=== PATIENT | male | born 1990 | race Caucasian/White ===

== ENCOUNTER 2017-03-06 08:47 | Emergency (ER) | payer BC ==
[2017-03-06 09:01] VITALS: BP 120/67
--- NOTE | 2017-03-06 09:17 | UC ---
Respiratory Complaint HPI - HPI Summary HPI Summary: he has hx of allergies and is on alba but now he is having wheezing. he has also had itchy watery eyes and congestion. no hx of asthma. - History of Current Complaint Chief Complaint: UCRespiratory Stated Complaint: ALLERGIES,TROUBLE BREATHING Time Seen by Provider: 03/06/17 09:03 Onset/Duration: Gradual Onset Timing: Constant Severity Initially: Mild Severity Currently: Moderate Character: Cough: Nonproductive Aggravating Factors: Allergens Associated Signs And Symptoms: Positive: Wheezing, Nasal Congestion, Hoarseness - Allergies/Home Medications Allergies/Adverse Reactions: Allergies Allergy/AdvReac Type Severity Reaction Status Date / Time ENVIROMENTAL Allergy Intermediate WHEEZING , Uncoded 03/06/17 08:54 CONGESTION Home Medications: Home Medications Cetirizine HCl [Zyrtec Allergy 10 MG TAB] 10 mg PO DAILY 03/06/17 [History Confirmed 03/06/17] Fexofenadine (NF) [Alba 180 (NF)] 180 mg PO DAILY 03/06/17 [History Confirmed 03/06/17] PMH/Surg Hx/FS Hx/Imm Hx Previously Healthy: Yes - seasonal allergies. Endocrine History Of: Denies: Diabetes - Surgical History Surgical History: None - Family History Known Family History: Positive: Other - adopted. - Social History Occupation: Student Alcohol Use: Rare Substance Use Type: None Smoking Status (MU): Never Smoked Tobacco Review of Systems All Other Systems Reviewed And Are Negative: Yes Physical Exam Triage Information Reviewed: Yes Appearance: Well-Appearing, No Pain Distress, Well-Nourished Vital Signs: Initial Vital Signs Temp 97.4 F 03/06/17 08:55 Pulse 86 03/06/17 08:55 Resp 20 03/06/17 08:55 BP 120/67 03/06/17 08:55 Pulse Ox 98 03/06/17 08:55 Vital Signs Reviewed: Yes Eye Exam: Normal Eyes: Positive: Conjunctiva Clear. Negative: Conjunctiva Inflamed ENT Exam: Normal ENT: Positive: Normal ENT inspection, Pharynx normal, Nasal congestion. Negative: Pharyngeal erythema, Nasal drainage, Tonsillar swelling, Tonsillar exudate, Trismus, Muffled/hoarse voice Neck exam: Normal Neck: Positive: Supple, Nontender, No Lymphadenopathy Respiratory: Positive: No respiratory distress, No accessory muscle use, Wheezing - torsten scant upper faint wheezing with good air movement throughout.. Negative: Respiratory distress, Decreased breath sounds, Accessory muscle use, Crackles, Rhonchi, Stridor Cardiovascular Exam: Normal Cardiovascular: Positive: RRR, No Murmur, Pulses Normal, Brisk Capillary Refill Abdominal Exam: Normal Abdomen Description: Positive: Nontender, No Organomegaly, Soft Musculoskeletal Exam: Normal Musculoskeletal: Positive: Strength Intact, ROM Intact, No Edema Neurological Exam: Normal Neurological: Positive: Alert, Muscle Tone Normal, Fatigued Psychological Exam: Normal Skin Exam: Normal Skin: Negative: rashes UC Diagnostic Evaluation - Laboratory O2 Sat by Pulse Oximetry: 98 Respiratory Course/Dx - Differential Dx/Diagnosis Provider Diagnoses: seasonal allergies. wheezing. Discharge - Discharge Plan Condition: Good Disposition: HOME Prescriptions: Albuterol HFA INHALER* [Ventolin HFA Inhaler*] 1 puff INH Q4H PRN #1 mdi PRN Reason: Wheezing Methylprednisolone [Medrol Dosepak 4 MG*] 4 mg PO .SEE JUAN INSTRUCTION #21 tab Spacer/Aerosol-Holding Chamber [Aerochamber Plus] 1 mis INH QID PRN #1 mis PRN Reason: Wheezing Patient Education Materials: Allergic Rhinitis (ED) Additional Instructions: return here for any worsening or return to [facility] for follow up.
== END 2017-03-06 09:24 | disposition home or self-care (01) ==
LOC: UCCORT 08:47
DX: J30.2 Other seasonal allergic rhinitis (principal); R06.2 Wheezing
CPT/HCPCS: 99202; G0463

== ENCOUNTER 2019-10-11 11:16 | Emergency (ER) | payer BC ==
[2019-10-11 12:19] VITALS: BP 122/82
--- NOTE | 2019-10-11 12:36 | UC ---
Throat Pain/Nasal Colin HPI - HPI Summary HPI Summary: sore throat x 3 days subjective fever, chills, severe body aches, fatigue harsh cough , nasal congestion not better with otc cold meds - History of Current Complaint Chief Complaint: UCRespiratory Stated Complaint: SINUSES/HOT/COLD CHILLS Time Seen by Provider: 10/11/19 12:13 Hx Obtained From: Patient Onset/Duration: Gradual Onset, Lasting Days - 3, Still Present Severity: Moderate Pain Intensity: 4 Cough: Nonproductive Associated Signs & Symptoms: Positive: Nasal Discharge, Fever. Negative: Dysphagia, FB Sensation, Drooling, Wheezing, Hoarseness, Sinus Discomfort, Vomiting, Rash - Allergies/Home Medications Allergies/Adverse Reactions: Allergies Allergy/AdvReac Type Severity Reaction Status Date / Time ENVIROMENTAL Allergy Intermediate WHEEZING , Uncoded 10/11/19 12:16 CONGESTION Home Medications: Home Medications Brompheniramine/Phenylephrine [Dimetapp Cold & Allergy] 1 elx PO SEE INSTRUCTIONS PRN 10/11/19 [History Confirmed 10/11/19] PMH/Surg Hx/FS Hx/Imm Hx Previously Healthy: Yes - Surgical History Surgical History: None - Family History Known Family History: Positive: Unknown, Other - adopted. - Social History Alcohol Use: Rare Substance Use Type: None Smoking Status (MU): Never Smoked Tobacco Review of Systems All Other Systems Reviewed And Are Negative: Yes Constitutional: Positive: Fever, Chills, Fatigue Skin: Positive: Negative Eyes: Positive: Negative ENT: Positive: Sore Throat, Nasal Discharge Respiratory: Positive: Cough Musculoskeletal: Positive: Arthralgia, Myalgia Is Patient Immunocompromised?: No Physical Exam Triage Information Reviewed: Yes Appearance: Well-Appearing, No Pain Distress, Well-Nourished Vital Signs: Initial Vital Signs Temp 99 F 10/11/19 12:13 Pulse 102 10/11/19 12:13 Resp 19 10/11/19 12:13 BP 122/82 10/11/19 12:13 Pulse Ox 100 10/11/19 12:13 Vital Signs Reviewed: Yes Eye Exam: Normal Eyes: Positive: Conjunctiva Clear ENT: Positive: Normal ENT inspection, Hearing grossly normal, Pharyngeal erythema, Nasal drainage, TMs normal. Negative: Tonsillar swelling, Tonsillar exudate Neck exam: Normal Neck: Positive: Supple, Nontender, No Lymphadenopathy Respiratory: Positive: Chest non-tender, Lungs clear, Normal breath sounds Cardiovascular: Positive: Tachycardia Abdominal Exam: Normal Abdomen Description: Positive: Nontender, Soft. Negative: CVA Tenderness (R), CVA Tenderness (L), Distended, Guarding Bowel Sounds: Positive: Present Skin Exam: Normal Throat Pain/Nasal Course/Dx - Differential Dx/Diagnosis Provider Diagnosis: Viral illness Discharge ED - Sign-Out/Discharge Documenting (check all that apply): Patient Departure All imaging exams completed and their final reports reviewed: No Studies - Discharge Plan Condition: Stable Disposition: HOME Patient Education Materials: Viral Syndrome (ED) Forms: *Work Release Referrals: No Primary Care Phys,NOPCP [Primary Care Provider] - If Needed - Billing Disposition and Condition Condition: STABLE Disposition: Home
[2019-10-11 12:44] LABS: Influenza A Molecular NEGATIVE (Negative); Influenza B Molecular NEGATIVE (Negative)
== END 2019-10-11 12:55 | disposition home or self-care (01) ==
LOC: UCCORT 11:16
DX: B34.9 Viral infection, unspecified (principal); J02.9 Acute pharyngitis, unspecified; J34.89 Other specified disorders of nose and nasal sinuses; R05 Cough; M79.10 Myalgia, unspecified site; Z91.09 Other allergy status, other than to drugs and biological substances
CPT/HCPCS: 87651; 99211; G0463